=== PATIENT | female | born 1985 | race Two or more races ===

== ENCOUNTER 2020-05-13 11:23 | Emergency (ER) | payer OTHER ==
[~2020-05-13] VITALS: Ht 157.5 cm; Wt 77.3 kg
[2020-05-13] MEDS ORDERED: KETOROLAC TROMETHAMINE 30 MG/ML VIAL IM ONE (12:15)
[2020-05-13] MEDS ORDERED: MORPHINE SULFATE 4 MG/ML SYRINGE IM ONE (12:15)
[2020-05-13] MEDS: ONDANSETRON HCL 4 MG/2 ML VIAL IM ONE ×2 (12:40→12:50)
[2020-05-13 13:52] VITALS: BP 120/69
== END 2020-05-13 14:04 | disposition home or self-care (01) ==
LOC: EMS 11:26
DX: S83.91XA Sprain of unspecified site of right knee, initial encounter (principal); Z88.0 Allergy status to penicillin; W19.XXXA Unspecified fall, initial encounter; Y93.89 Activity, other specified; Y92.89 Other specified places as the place of occurrence of the external cause; Y99.8 Other external cause status
CPT/HCPCS: 29505; 73562; 96372; 99284; J1885; J2270; J2405